=== PATIENT | male | born 1945 ===

== ENCOUNTER 2018-08-05 14:12 | Outpatient (CLI) | payer OTHER ==
[~2018-08-05] VITALS: Ht 172.7 cm; Wt 102.1 kg
== END 2018-08-05 14:30 | disposition home or self-care (01) ==
LOC: OFIC 805 14:12
DX: H66.91 Otitis media, unspecified, right ear (principal); R09.81 Nasal congestion

== ENCOUNTER 2018-09-21 10:45 | Outpatient (CLI) | payer OTHER ==
[~2018-09-21] VITALS: Ht 152.4 cm; Wt 102.1 kg
== END 2018-09-21 11:00 | disposition home or self-care (01) ==
LOC: OFIC 805 10:45
DX: H66.91 Otitis media, unspecified, right ear (principal); R09.81 Nasal congestion; H90.3 Sensorineural hearing loss, bilateral

== ENCOUNTER 2018-10-07 15:15 | Outpatient (CLI) | payer OTHER ==
[~2018-10-07] VITALS: Ht 152.4 cm; Wt 102.1 kg
== END 2018-10-07 15:30 | disposition home or self-care (01) ==
LOC: OFIC 805 15:15
DX: H90.3 Sensorineural hearing loss, bilateral (principal); H66.91 Otitis media, unspecified, right ear; R09.81 Nasal congestion